=== PATIENT | male | born 1945 | race Caucasian/White ===

== ENCOUNTER 2019-04-10 04:55 | Inpatient (IN) ==
--- NOTE | 2019-03-20 16:03 | PAT Medication Instructions ---
Medication Instructions Date of Service March 20, 2019 Home Medications cholecalciferol (vitamin D3) [Vitamin D3] 1,000 unit PO QAM coQ10 (ubiquinol) 200 mg PO 2XWK multivitamin 1 tab PO QAM olmesartan 40 mg PO QPM omega-3 fatty acids-fish oil [Fish Oil Extra Strength] 1,200 cap PO BID simvastatin 10 mg PO PM STOP taking 2 weeks before surgery coQ10 (ubiquinol) 200 mg PO 2XWK omega-3 fatty acids-fish oil [Fish Oil Extra Strength] 1,200 cap PO BID DO NOT take the morning of surgery cholecalciferol (vitamin D3) [Vitamin D3] 1,000 unit PO QAM multivitamin 1 tab PO QAM Take evening before surgery olmesartan 40 mg PO QPM simvastatin 10 mg PO PM Other Notes If you have any questions please call us at [phone] or [phone] or [phone] or [phone]
--- NOTE | 2019-03-21 11:34 | Anesthesiology Consultation ---
Date of Service March 21, 2019 Assessment & Plan (1) Encounter for pre-operative examination: *PATIENT IS HARD OF HEARING* Chart Review Chart Review: Acceptable Risk for Surgery and Patient seen in Pre Admission Testing Teaching & Discussion Instructed NPO after midnight before surgery, except medications with 15 cc of water. Medication instructions provided according to the PAT guidelines. History Surgery Operation Date: 04/10/19 07:00 Proposed Procedures p Right Total Hip Replacement - Horace Castañeda MD Height/Weight Height: 5 ft 10 in Weight: 90.4 kg Allergies Allergy/AdvReac Type Severity Reaction Status Date / Time amoxicillin Allergy Rash Verified 03/19/19 15:10 Penicillins Allergy RSAH Verified 03/19/19 15:10 Medications Home Medications Medication Instructions Recorded Confirmed Last Taken cholecalciferol (vitamin D3) 1,000 unit PO QAM 03/19/19 03/19/19 Unknown [Vitamin D3] coQ10 (ubiquinol) 200 mg PO 2XWK 03/19/19 03/19/19 Unknown multivitamin 1 tab PO QAM 03/19/19 03/19/19 Unknown olmesartan 40 mg PO QPM 03/19/19 03/19/19 Unknown omega-3 fatty acids-fish oil [Fish 1,200 cap PO BID 03/19/19 03/19/19 Unknown Oil Extra Strength] simvastatin 10 mg PO PM 03/19/19 03/19/19 Unknown Past Medical History Medical History History of shingles On scalp. Valtrex started 02/25/2019 FOR 7 DAYS. Minimal symptoms at time of PAT. Hyperlipidemia Hypertension Osteoarthritis Exercise / Class Metabolic Activity II 4-5 Yardwork/Stairs/Walk up hill (Denies CP or SOB with 1 FOS.) Past Family History Family History Grandmother (Maternal) Family history of diabetes mellitus Grandmother (Paternal) Family history of diabetes mellitus Past Surgical History Surgical History H/O colonoscopy Hx of cataract extraction BOTH EYES Past Anesthesia History No Hx of Anesthesia Complications and No Family Hx of Anesthesia Complications GA naive. History of PONV No Hx of PONV and No Hx of Motion Sickness Social History Smoking Status: Former smoker Do You Dip or Chew Tobacco: No (quit 15-20yrs ago) Smoking End Date: 45 YR AGO Hx Alcohol Use: Yes alcohol intake frequency: a few times a week Hx Substance Use: No Review of Systems Pt denies any recent chest pain, shortness of breath, palpitations, cough, fever or URI. Physical Exam Vital Signs BP: 137/86 P: 56bpm SPO2: 95% RA T: 98.7 F R: 16 ENMT Mouth: no dental restorations, no chipped teeth and no loose teeth Thyromental Distance: < 3.5 Finger Breadths (3) Mallampati Class: I Neck normal visual inspection and + facial hair (mustache); neck extension not limited Respiratory normal respiratory effort Auscultation: lungs clear to auscultation bilaterally Cardiovascular Rate/Rhythm: regular rate and regular rhythm Heart Sounds: no murmur Vessels: no carotid bruit Testing Laboratory Results 03/21/19 11:43 03/21/19 11:43 PT 10.1 Seconds (9.0-12.0) 03/21/19 11:43 INR 1.0 (0.9-1.1) 03/21/19 11:43 APTT 24.5 Seconds (21.0-31.0) 03/21/19 11:43 Blood Type O Positive 03/21/19 11:43 Antibody Screen NEGATIVE 03/21/19 11:43 Electrocardiogram Date: 03/21/19 Findings: + SB @ (55) LAFB. Chest X-Ray Date: 03/21/19 Findings: + NAD
--- NOTE | 2019-03-21 12:05 | XRay Report ---
TWO VIEW CHEST CLINICAL HISTORY: Preoperative examination. FINDINGS: PA and lateral chest radiographs are obtained. No prior studies are available for compariso n at the time of dictation. The heart is top normal for projection. The pulmonary vasculature is no ncongested. The lungs and pleural spaces are clear. There is no pneumothorax. The skeletal structure s are osteopenic. Degenerative change is seen throughout the thoracic spine. The bony thorax appears intact. IMPRESSION: No active disease in the chest. Electronically signed by: Lincoln Montague M.D. 03/21/2019 12:04 PM
[2019-03-21 12:49] LABS: Basophils # (auto) 0.03 K/uL (0-0.2); Basophils % (auto) 0.4 %; Eosinophils # (auto) 0.12 K/uL (0-0.5); Eosinophils % (auto) 1.7 %; Immature Granulocytes # (auto) 0.01 K/uL (0.00-0.02); Immature Granulocytes % (auto) 0.1 %; Lymphocytes # (auto) 1.92 K/uL (1.2-3.4); Mean Corpuscular Hgb Conc 34.4 g/dL (32-36); Mean Corpuscular Volume 92.2 fL (80-100); Monocytes # (auto) 0.67 K/uL (0.11-0.59); Monocytes % (auto) 9.4 %; Neutrophils # (auto) 4.36 K/uL (1.4-6.5); Neutrophils % (auto) 61.4 %; Platelet Count 268 K/uL (130-400); RDW Coefficient of Variation 14.6 % (11.5-14.5); RDW Standard Deviation 49.1 fL (36.4-46.3); White Blood Count 7.11 K/uL (4.8-10.8)
[2019-03-21 12:58] LABS: Partial Thromboplastin Ratio 0.9; Partial Thromboplastin Time 24.5 Seconds (21.0-31.0); Prothrombin Time 10.1 Seconds (9.0-12.0)
[2019-03-21 13:02] LABS: BUN Creatinine Ratio 18.2 (10-20); Calcium 8.2 mg/dl (8.5-10.1); Potassium 4.1 mmol/L (3.5-5.1)
--- NOTE | 2019-04-06 18:15 | History and Physical Report ---
DATE OF ADMISSION: 04/10/2019 CHIEF COMPLAINT: Right hip pain. HISTORY OF PRESENT ILLNESS: The patient is a 74-year-old gentleman from [place] who presents for treatment of his right hip. He has a 4-year history of gradually increasing right hip pain and discomfort that has gotten significantly worse over the past year. He is a very active gentleman who has become less active due to his hip pain. He used to walk quite a bit, but can only walk about quarter of a mile. He limps the more he walks. He describes groin and thigh pain. He has got some nighttime discomfort. He takes Aleve, which takes the edge off of it at best. It is really affecting his lifestyle and he would like to have his hip fixed. PAST MEDICAL HISTORY: 1. Hypertension. 2. Elevated cholesterol. 3. Osteoarthritis. PAST SURGICAL HISTORY: None. ALLERGIES: AMOXICILLIN, WHICH CAUSES A RASH. CURRENT MEDICINES: Include: 1. Olmesartan. 2. Simvastatin. SOCIAL HISTORY: A 74-year-old male. He is from [place]. He is very active. He is retired. , with 4 children. Rare alcohol intake. Does not smoke. FAMILY HISTORY: Significant for colon cancer and heart disease. REVIEW OF HISTORY: Negative for diabetes, neurologic problems, vascular problems, bleeding disorders. No chest pain or shortness of breath. No history of DVT or PE. No known bleeding problems. PHYSICAL EXAMINATION: GENERAL: Reveals a pleasant, healthy-appearing middle-aged male. Looks a little younger than his stated age. HEENT: Benign. NECK: Supple. No lymphadenopathy. LUNGS: Clear to auscultation. HEART: Has a regular rate and rhythm. ABDOMEN: Soft, nontender, nondistended. EXTREMITIES: Grossly neurovascularly intact except as follows: Examination of the right hip reveals patient walks with a slightly antalgic gait. He is about 0.5 cm short on the right side compared to the left. He does have pain with any type of hip motion. He has got limited internal rotation to about neutral. He can externally rotate to 25 degrees. Negative straight leg raise. He is neurologically intact. No knee effusion. X-RAYS: X-rays of the right hip were reviewed. It shows advanced right hip DJD. He has got complete loss of his superior joint space. He has some subchondral sclerosis and some cystic changes and osteophyte formation. This has progressed over the past year. ASSESSMENT: A 74-year-old male with advanced right hip degenerative joint disease that has gotten significantly worse over the past year. He has failed conservative treatment and would like to have his right hip replaced. PLAN: We are going to take him to the operating room and do right total hip replacement. The risks and benefits of this procedure were explained to the patient including but not limited to DVT, PE, , infection, neurological injury, vascular injury, bleeding problem, pain, limited range of motion, stiffness, failure to relieve symptoms, incomplete relief of symptoms, need for further surgery in future, fracture, leg length inequality, nerve palsy, persistent pain, instability, need for blood transfusion, etc. The patient understands and desires to proceed. Informed consent was obtained. He is planning to be discharged to home using some home health for the first 2 weeks. SEBASTIEN
[2019-04-10] MEDS ORDERED: FAMOTIDINE 20 MG TAB PO SCH (06:00)
[2019-04-10] MEDS ORDERED: METOCLOPRAMIDE HCL 10 MG TABLET PO SCH (06:00)
[2019-04-10] MEDS ORDERED: ACETAMINOPHEN 500 MG TAB PO SCH (06:00)
[2019-04-10] MEDS ORDERED: GABAPENTIN 300 MG CAP PO SCH (06:00)
[2019-04-10] MEDS ORDERED: CEFAZOLIN 2000MG 2,000 MG/15 ML SYR IV SCH (06:00)
[2019-04-10] MEDS ORDERED: LR 500ML BOLUS, THEN 15ML/HR IV SCH (06:00)
[2019-04-10] MEDS ORDERED: TRANEXAMIC ACID 1,000 MG **IV Pre-op IV SCH (06:00)
[2019-04-10] MEDS ORDERED: LACTATED RINGER'S 1,000 ML IV SCH (06:00)
[2019-04-10] MEDS ORDERED: BUPIVACAINE/EPINEPHRINE 0.5% MPF 1:200,000 30 ML VIAL ONE (06:26)
[2019-04-10] MEDS ORDERED: BACITRACIN INJ 50,000 UNIT VIAL ONE (06:26)
[2019-04-10] MEDS ORDERED: BUPIVACAINE 0.5 % 5 MG/1 ML PF 10ML VIAL ONE (06:31)
[2019-04-10] MEDS ORDERED: MIDAZOLAM HCL 1 MG/ML 2ML VIAL ONE ×2 (06:35→06:36)
[2019-04-10] MEDS ORDERED: MoRPHine SULFATE PF 1 MG/ML 10 ML AMP/VIAL ONE (06:36)
--- NOTE | 2019-04-10 06:44 | History & Physical Bridge Note ---
Date of Service April 10, 2019 History & Physical Bridge Note I have examined the patient, reviewed the History & Physical and in the interval since the performance of the History & Physical I have noted the following changes of clinical significance: no changes noted
[2019-04-10] MEDS ORDERED: DiphenhydrAMINE HCL 50 MG/ML VIAL IV PRN (06:51)
[2019-04-10] MEDS ORDERED: ePHEDrine sulfate 50 MG/ML AMP IV PRN (06:51)
[2019-04-10] MEDS ORDERED: ONDANSETRON INJ 2 MG/ML 2 ML VIAL IV PRN (06:51)
[2019-04-10] MEDS ORDERED: NALOXONE HCL 0.4 MG/1 ML VIAL/CARP IV PRN ×2 (06:51→11:08)
[2019-04-10] MEDS ORDERED: NALOXONE HCL 0.08 MG in SYRINGE 1.8 ML IV PRN (06:51)
[2019-04-10] MEDS ORDERED: MEPERIDINE HCL 25 MG/ML CARP IV PRN (06:51)
[2019-04-10] MEDS ORDERED: LACTATED RINGER'S 500 ML IV PRN (06:51)
[2019-04-10] MEDS ORDERED: MoRPHine SULFATE PF 1 MG/ML 10 ML AMP/VIAL INT SPINAL ONE (06:51)
[2019-04-10] MEDS ORDERED: NALOXONE HCL 1 MG in SODIUM CHLORIDE 0.9% 1000ML 1,000 ML IV PRN (06:51)
[2019-04-10] MEDS ORDERED: NALBUPHINE HCL INJ 10 MG/ML AMP IV PRN (06:51)
[2019-04-10] MEDS ORDERED: NO NARCOTICS OR SEDATIVES SCH (07:00)
[2019-04-10] MEDS ORDERED: SODIUM CHLORIDE 0.9% 1000ML 1,000 ML IV SCH (07:00)
[2019-04-10] MEDS ORDERED: DC INTRASPINAL MORPHINE SCH (07:00)
[2019-04-10] MEDS ORDERED: PHENYLEPHRINE 100MCG/ML 5ML SYR ONE (07:05)
[2019-04-10] MEDS ORDERED: PROPOFOL IV EMULSION 10 MG/ML 20 ML VIAL IV ONE (07:05)
[2019-04-10] MEDS ORDERED: LIDOCAINE HCL 2% 2 ML VIAL/AMP(20MG/ML) INFIL ONE (07:05)
[2019-04-10] MEDS ORDERED: ePHEDrine sulfate 50 MG/ML SYR ONE (07:33)
[2019-04-10] MEDS ORDERED: VASOPRESSIN 20 UNIT/ML VIAL ONE (07:33)
[2019-04-10] MEDS ORDERED: PHENYLEPHRINE HCL 10 MG/ML VIAL ONE (07:33)
--- NOTE | 2019-04-10 08:23 | Post Operative Brief Note ---
Immediate Post Op Note v1 Date of Surgery April 10, 2019 Pre & Post Diagnosis Operation Date: 04/10/19 07:00 Pre-Op Diagnosis: Right Hip Degenerative Joint Disease Post-Op Diagnosis: Right Hip Degenerative Joint Disease Procedure Operation Date: 04/10/19 07:00 Actual Procedures p Right Total Hip Replacement(Right) - Horace Castañeda MD Surgeon Horace Castañeda MD Plastic Bubble Packer Darek, PAC Estimated Blood Loss 400 Findings Consistent with Post-Op Diagnosis Fluids 1700 cc Specimens Right Femoral Head Drains Foster Catheter Anesthesia Type Spinal MAC Complications none Disposition Accompanied Patient To Recovery: Yes Disposition: Recovery Room
--- NOTE | 2019-04-10 09:06 | XRay Report ---
SINGLE VIEW PELVIS; SINGLE VIEW RIGHT HIP CLINICAL HISTORY: Postoperative examination. FINDINGS: An AP portable view of the hips and pelvis with a crosstable lateral portable view of the r ight hip are obtained. A bipolar right hip arthroplasty has been placed. The femoral component of th e arthroplasty not well seated within the acetabular cup. At least 2 cortical lag screws transfix the acetabular cup. No acute fracture is identified. There are expected postoperative changes overlying the right hip including skin clips, subcutaneous gas, and soft tissue swelling. IMPRESSION: 1. There are expected postoperative findings status post right hip arthroplasty. No acute fracture is seen. 2. The femoral component of the arthroplasty is not well seated within the acetabular cup. Electronically signed by: Lincoln Montague M.D. 04/10/2019 9:05 AM
--- NOTE | 2019-04-10 09:40 | XRay Report ---
XR hip 1V RT w pelvis CLINICAL HISTORY: post op follow up subluxation COMPARISON: 8:40 AM same date DISCUSSION: Anatomic alignment posttotal right hip arthroplasty. No evidence for acetabular protrusio n. Soft tissue postoperative changes considered unremarkable. Expected soft tissue postoperative lopez ge the frog-leg projection suggests anterior subluxation of the femoral prosthetic in relation to the acetabular prosthetic. IMPRESSION: Partial intermittent and/or positional subluxation of the patient's total right hip arthr oplasty. The above report was generated using voice recognition software. It may contain grammatical, syntax or spelling errors. Electronically signed by: David Alford M.D. 04/10/2019 9:39 AM
--- NOTE | 2019-04-10 09:42 | XRay Report ---
XR hip 1V RT w pelvis CLINICAL HISTORY: RIGHT subluxation COMPARISON: 9:04 AM DISCUSSION: Anatomic alignment posttotal right hip arthroplasty. No evidence for positional subluxati on. Acetabular cup is stable in appearance. Expected postoperative soft tissue change. IMPRESSION: Anatomic alignment posttotal right hip arthroplasty. No evidence for subluxation on a pos itional basis. The above report was generated using voice recognition software. It may contain grammatical, syntax or spelling errors. Electronically signed by: David Alford M.D. 04/10/2019 9:41 AM
--- NOTE | 2019-04-10 10:31 | Anesthesiology Progress Note ---
Date of Service April 10, 2019 Anesthesia Post Procedure Vital Signs Vital Signs: Temp Pulse Pulse Resp BP Pulse Ox 04/10/19 10:25 97.2 F L 58 L 14 118/75 98 04/10/19 10:10 58 L 15 118/75 97 04/10/19 09:55 55 L 15 118/71 97 04/10/19 09:40 97.0 F L 55 L 19 104/65 99 04/10/19 09:30 55 L 17 109/65 96 04/10/19 09:20 54 L 17 110/64 100 04/10/19 09:10 61 18 114/85 92 04/10/19 09:00 56 L 13 95/63 L 93 04/10/19 08:50 56 L 16 106/69 98 04/10/19 08:40 58 L 18 106/62 99 04/10/19 08:30 63 12 109/62 99 04/10/19 08:24 97.9 F 72 12 117/71 99 04/10/19 05:49 98.6 F 61 20 146/91 H 96 Transfer of Care Handoff Completed per policy Notes Mental Status: alert / awake / arousable and participated in evaluation Patient Amnestic to Procedure: Yes Nausea / Vomiting: adequately controlled Pain: adequately controlled Airway Patency, RR, SpO2: stable & adequate BP & HR: stable & adequate Hydration State: stable & adequate Neuraxial Anesthesia: was administered and sensory block is resolving Anesthetic Complications: no major complications apparent and Pt Satisfied with anesthetic care
--- NOTE | 2019-04-10 11:01 | Operative Report ---
DATE OF OPERATION: 04/10/2019 SURGEON: Horace Castañeda MD SHANK RANDER: HORACIO Villarreal PREOPERATIVE DIAGNOSIS: Right hip degenerative joint disease. POSTOPERATIVE DIAGNOSIS: Right hip degenerative joint disease. PROCEDURE PERFORMED: Right uncemented ceramic on highly cross-linked polyethylene total hip arthroplasty. COMPLICATIONS: None. ESTIMATED BLOOD LOSS: 400 mL. FLUID REPLACEMENT: 1700 mL crystalloid fluid replacement. ANESTHESIA: Spinal. DRAINS: None. SPECIMENS: Right femoral head sent for pathology. OPERATIVE INDICATIONS: The patient is a 74-year-old gentleman who has had a several-year history of increasing right hip pain and discomfort that has gotten significantly worse over the past year. X-rays show progressive hip arthritis. He failed conservative treatment and elected to proceed with surgical treatment. OPERATIVE FINDINGS: Operative findings revealed advanced right hip DJD. He had extensive grade 4 changes of the femoral head and acetabulum. He had a large medial osteophyte. He had a large hip joint effusion. OPERATIVE IMPLANTS: 1. Operative implants consisted of Biomet G7 size 56 mm acetabular shell. 2. A 6.5 cancellous acetabular screws, one at 35 mm in length and 1 at 20 mm in length. 3. An apex hole eliminator. 4. A highly cross-linked polyethylene liner with a 56 mm outer diameter, 36 mm inner diameter with a gonsales placed inferior and posterior. 5. DePuy Corail size 13 KLA femoral stem. 6. +12/36 mm ceramic articular ball. OPERATIVE PROCEDURE: The patient was taken to the operating room, identified and placed on the operating table in supine position. All contact areas were appropriately padded. IV antibiotics were provided by anesthesia team. A spinal anesthetic had been implemented in the holding area. Foster catheter was placed in sterile fashion. The patient was then placed in the left lateral decubitus position. An axillary roll was placed. Stlberg hip positioner was used for positioning. The right hip and leg were then prepped and draped in usual sterile fashion. A posterolateral approach of the right hip was then performed through a curvilinear incision centered over the greater trochanter. Sharp dissection was carried through subcutaneous tissue down to the level of the IT band and gluteal fascia. The IT band and gluteal fascia were then incised longitudinally in line with skin incision. He had quite a bit of bursitis. The bursa was excised. The piriformis and external rotators were tagged and taken off the posterior aspect of the hip joint capsule very carefully. Great care was taken throughout the procedure to protect the sciatic nerve at all times. A posterior capsulotomy was then performed. He had a fairly large posterior capsule. This was kept for later repair. Hip was internally rotated and dislocated. Femoral neck osteotomy cut was made with the final cut about a cm above the lesser trochanter. Femoral head was removed and sent for pathology. The femur was retracted anteriorly. Attention was then drawn to the acetabulum. The acetabulum labrum was excised. He did have a fairly thickened hypertrophic labrum. The pulvinar fat was excised. The large medial osteophyte was removed. Sequential reaming of the acetabulum was then performed beginning with size 49 and progressing up to 55. A 56 mm Biomet G7 acetabular shell was then placed in about 40 degrees of lateral opening and 20 degrees of anteversion. It was fixed with two 6.5 cancellous acetabular screws. A trial liner was placed. I did remove an anterior acetabular osteophyte. Attention was then drawn to the femur. The proximal femur was entered with a cookie cutter followed by canal finder. I then broached beginning with a size 8 and progressing up to 13. We got good fit at 13. I used a calcar reamer to smoothen off the calcar. I then trialed the hip. The soft tissue tension was pretty lax. Hip components looked to be good and the hip was pretty stable, but we elected to use a +12 neck in order to optimize the leg lengths and soft tissue tension and stability. I did eventually place a gonsales inferior and posterior to maximize his hip stability in 90 degrees of flexion, especially considering his soft tissue laxity.. We elected to place these implants. All trial implants were removed. An apex hole eliminator was placed. Highly cross-linked polyethylene liner with a gonsales placed inferior and posterior was placed. A DePuy Corail size 13 KLA femoral stem was impacted in position. A +12/36 mm ceramic articular ball was placed. Hip was located and once again found to be stable. Attention was then drawn toward closing. I did inject locally with 60 mL of 0.5% Marcaine with epinephrine. I irrigated the wound extensively. The posterior capsule and external rotators were then repaired through drill holes in the posterior trochanter with #2 Ti-Cron suture. The IT band and gluteal fascia were then closed with #1 PDS suture in running fashion. The subcutaneous tissue was then closed with 2 layers, the deep layer #1 Vicryl suture and the subcutaneous tissue with 2-0 Dexon suture in a buried interrupted fashion. The skin was closed with skin les. Leg was then cleaned and dried and a sterile dressing of Xeroform, 4 x 4's, sterile ABD pad and foam tape was applied. The patient was then transferred to the recovery room in stable condition. The patient tolerated the procedure well with no complication. All needle and sponge counts were correct at the end of the operation. I attest to the content of the Intraoperative Record and any orders documented therein. Any exceptions are noted below. DERRICKD
[2019-04-10] MEDS ORDERED: [UNRECOGNIZED DRUG - OTHER] PO SCH (11:08)
[2019-04-10] MEDS ORDERED: BISACODYL 10 MG SUPP PR PRN (11:08)
[2019-04-10] MEDS ORDERED: NON-FORMULARY MEDICATION (Coq10 (Ubiquinol) 200 MG) PO SCH (11:08)
[2019-04-10] MEDS ORDERED: MAGNESIUM HYDROXIDE SUSP 30 ML UDC PO PRN (11:08)
[2019-04-10] MEDS ORDERED: MULTIVITAMIN TAB PO SCH (11:08)
[2019-04-10] MEDS ORDERED: ALUMINUM/MAGNESIUM SUSP 30 ML UDC PO PRN (11:08)
[2019-04-10] MEDS ORDERED: TAMSULOSIN HCL 0.4 MG CAP PO PRN (11:08)
[2019-04-10] MEDS: KETOROLAC TROMETHAMINE 15 MG/ML VIAL IV SCH ×3 (12:47→23:52)
[2019-04-10] MEDS: CHOLECALCIFEROL 1,000 UNITS TAB PO SCH (12:47)
[2019-04-10] MEDS: MULTIVITAMIN TAB PO SCH (12:47)
[2019-04-10] MEDS: DOCUSATE SODIUM 100 MG CAP PO SCH ×2 (12:47→20:02)
[2019-04-10] MEDS: ASPIRIN 81 MG ECTAB PO SCH ×2 (12:47→20:02)
[2019-04-10] MEDS: SODIUM CHLORIDE 0.9% 1000ML 1,000 ML IV SCH ×2 (14:23→21:09)
[2019-04-10] MEDS: CEFAZOLIN 2000MG 2,000 MG/15 ML SYR IV SCH ×2 (14:24→21:24)
[2019-04-10] MEDS: ACETAMINOPHEN 500 MG TAB PO SCH ×2 (14:24→21:24)
[2019-04-10] MEDS ORDERED: TRANEXAMIC ACID 1,000 MG in 0.9 % SODIUM CHLORIDE 100 ML IV SCH (14:30)
--- NOTE | 2019-04-10 17:01 | Progress Note ---
DATE: 04/10/2019 SUBJECTIVE: A 74-year-old gentleman postop from a right total hip replacement. He is doing well. Not having any pain at all yet. No chest pain or shortness of breath. Not feeling dizzy or lightheaded. No hip pain. In the PACU, his hip was subluxated anteriorly on his postoperative films. We just flexed his hip and internally rotated his foot a little bit and it has relocated. OBJECTIVE: VITAL SIGNS: Temperature 36.7. Vital signs stable. PHYSICAL EXAMINATION: GENERAL: Reveals a pleasant, middle-aged male. He is sitting up in bed and looks comfortable. He is talking to his . LUNGS: Clear to auscultation. HEART: Regular rate and rhythm. ABDOMEN: Soft, nontender, nondistended. EXTREMITIES: Grossly neurovascularly intact except as follows: Examination of the right lower extremity reveals the leg lengths to be equal. His leg is well aligned. Kneecap is pointed to the ceiling. He can dorsiflex and plantarflex his foot appropriately. He has got no particular pain with hip motion. His hip is stable on exam and is located. X-RAYS: X-rays of the right hip from recovery room are reviewed. It shows right uncemented total hip replacement. The initial films of his hip to be anterior subluxated. We did get a film with his foot internally rotated and flexed some and his hip is relocated. There is quite a bit of anteversion in the cup a little bit more than what I anticipated. ASSESSMENT: A 74-year-old gentleman postoperative from right total hip replacement, doing well. His hip is located currently and he does not have any pain. 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 He did have a fairly loose soft tissue envelope as we medialized this cup significantly. I think as his muscles tightened up, this will not be an issue. For now, we are going to keep a pillow behind his knee and just keep his knee slightly flexed while in bed. Does not need to do that otherwise. I discussed this with the patient and his today extensively and everything looks good and we will continue routine postoperative care other than that described above where we will keep a pillow underneath his knee when he is lying in bed. PLAN: 1. DVT prophylaxis including thigh-high TEDs, SCDs, and aspirin twice a day. 2. PT/OT. He can weight bear as tolerated. Right total hip protocol. We are going to keep his knee and hip just slightly flexed while lying flat in bed for now. I think this subluxation issue will resolve once his muscles have tightened up and the spinal is worn off, which is the case currently. 3. IV antibiotics x24 hours. 4. Pain control, doing well with current pain regimen. Not having any current pain. 5. Disposition: He is planning to be discharged home with some home health once adequately recovered. SEBASTIEN
[2019-04-10] MEDS: FERROUS GLUCONATE 324 MG TAB PO SCH (17:57)
[2019-04-10] MEDS: ASCORBIC ACID 500 MG TAB PO SCH (17:57)
[2019-04-10] MEDS: SIMVASTATIN 10 MG TAB PO SCH (20:02)
[2019-04-10] MEDS: SENNA 8.6 MG TAB PO SCH (20:02)
[2019-04-10] MEDS: OLMESARTAN MEDOXOMIL 40 MG TAB PO SCH (20:02)
[2019-04-11] MEDS ORDERED: HYDROmorphone INJ 0.5 MG/0.5 ML SYR IV PRN ×2 (00:51→07:00)
[2019-04-11] MEDS ORDERED: ONDANSETRON INJ 2 MG/ML 2 ML VIAL IV PRN ×2 (00:51→07:00)
[2019-04-11] MEDS ORDERED: METOCLOPRAMIDE HCL INJ 5 MG/ML 2 ML VIAL IV PRN ×2 (00:51→07:00)
[2019-04-11] MEDS: SODIUM CHLORIDE 0.9% 1000ML 1,000 ML IV SCH (03:52)
[2019-04-11] MEDS: ACETAMINOPHEN 500 MG TAB PO SCH ×3 (06:20→22:07)
[2019-04-11] MEDS: KETOROLAC TROMETHAMINE 15 MG/ML VIAL IV SCH ×3 (06:20→18:02)
[2019-04-11 06:52] LABS: Basophils # (auto) 0.02 K/uL (0-0.2); Basophils % (auto) 0.2 %; Eosinophils # (auto) 0.07 K/uL (0-0.5); Eosinophils % (auto) 0.8 %; Hemoglobin 10.6 g/dL (14.0-18.0); Immature Granulocytes # (auto) 0.02 K/uL (0.00-0.02); Immature Granulocytes % (auto) 0.2 %; Lymphocytes # (auto) 1.17 K/uL (1.2-3.4); Lymphocytes % (auto) 12.7 %; Mean Corpuscular Hgb Conc 34.2 g/dL (32-36); Mean Corpuscular Volume 93.1 fL (80-100); Mean Platelet Volume 9.7 fL (7.4-10.4); Monocytes # (auto) 1.22 K/uL (0.11-0.59); Monocytes % (auto) 13.3 %; Neutrophils % (auto) 72.8 %; Platelet Count 194 K/uL (130-400); RDW Coefficient of Variation 14.2 % (11.5-14.5); RDW Standard Deviation 48.6 fL (36.4-46.3); Red Blood Count 3.33 M/uL (4.7-6.1)
[2019-04-11] MEDS ORDERED: TRAMADOL HCL 50 MG TABLET PO PRN (07:00)
[2019-04-11 07:18] LABS: BUN Creatinine Ratio 18.3 (10-20); Calcium 7.7 mg/dl (8.5-10.1); Creatinine Clr Calc Pharmacy 86.2 ml/min; Est GFR (African American) 99.9; Est GFR (Non-African American) 86.2; Potassium 4.4 mmol/L (3.5-5.1)
[2019-04-11] MEDS: FERROUS GLUCONATE 324 MG TAB PO SCH ×2 (09:21→18:02)
[2019-04-11] MEDS: MULTIVITAMIN TAB PO SCH (09:21)
[2019-04-11] MEDS: TRAMADOL HCL 50 MG TABLET PO PRN (09:22)
[2019-04-11] MEDS: ASCORBIC ACID 500 MG TAB PO SCH ×2 (09:22→18:02)
[2019-04-11] MEDS: DOCUSATE SODIUM 100 MG CAP PO SCH ×2 (09:22→19:56)
[2019-04-11] MEDS: CHOLECALCIFEROL 1,000 UNITS TAB PO SCH (09:23)
[2019-04-11] MEDS: ASPIRIN 81 MG ECTAB PO SCH ×2 (09:23→19:56)
--- NOTE | 2019-04-11 13:59 | Progress Note ---
DATE: 04/11/2019 SUBJECTIVE: A 74-year-old gentleman postop day 1 from right total hip replacement. He is doing well. Therapy has gone well. A little bit of buttock soreness in his hip. Pain is manageable. No chest pain or shortness of breath. Therapy went well today. OBJECTIVE: VITAL SIGNS: Temperature 37.0. Vital signs stable. GENERAL: Physical examination shows a pleasant, middle-aged male. He is sitting up in bed and looks quite comfortable. EXTREMITIES: Examination of the right hip and leg reveals the leg lengths to be equal. His hip appears located. He can dorsiflex and plantarflex his foot appropriately. Minimal pain with hip motion. He is neurologically intact. LABORATORY DATA: Hemoglobin 10.6. Hematocrit 31.0. Electrolytes are stable. ASSESSMENT: A 74-year-old gentleman postop day 1 from right hip replacement. He is doing well. Therapy went well. He did have a little anterior subluxation in the recovery room, but I think this has resolved since the spinal has worn off. His hip clinically appears located and therapy went well. PLAN: 1. DVT prophylaxis including thigh-high TEDs, SCDs, and aspirin twice a day. 2. PT/OT. Weight bear as tolerated. Right total hip protocol. 3. Pain control, doing well with current pain regimen. 4. Hip subluxation postoperatively. I think this will resolve since the spinal has worn off and his muscle tension is back to normal. We will keep his pillow underneath his knee just while he is lying flat in bed and that is the only restrictions. If he develops further issues, we will have to address that, but I think it is unlikely. I had a discussion with the patient and his regarding this today. We will just observe this over time. 5. Disposition: Plan to discharge to home with some home health once adequately recovered.
[2019-04-11] MEDS: SIMVASTATIN 10 MG TAB PO SCH (19:56)
[2019-04-11] MEDS: SENNA 8.6 MG TAB PO SCH (19:56)
[2019-04-11] MEDS: OLMESARTAN MEDOXOMIL 40 MG TAB PO SCH (19:56)
[2019-04-12] MEDS: KETOROLAC TROMETHAMINE 15 MG/ML VIAL IV SCH ×2 (00:56→06:32)
[2019-04-12] MEDS: ACETAMINOPHEN 500 MG TAB PO SCH (06:32)
--- NOTE | 2019-04-12 08:12 | Progress Note ---
DATE: 04/12/2019 SUBJECTIVE: A 74-year-old gentleman postop day 2 from right hip replacement. He is doing well. Pain is controlled. Therapy went well. No chest pain or shortness of breath. Not feeling dizzy or lightheaded. OBJECTIVE: VITAL SIGNS: Temperature 37.2. Vital signs stable. GENERAL: Physical examination shows a pleasant, middle-aged male. He is sitting in bed doing his leg exercises. He is doing heel slides without any difficulty. EXTREMITIES: His incision is clean, dry and intact. Thigh is soft and supple. No drainage from the incision site. Leg lengths are equal. He is neurologically intact. ASSESSMENT: A 74-year-old gentleman postop day 2 from right total hip replacement, doing well. Hip is located. His hip is functioning fine. His pain is controlled. He is neurologically intact. PLAN: 1. DVT prophylaxis including thigh-high TEDs, SCDs, and aspirin twice a day. 2. PT/OT. Weight bear as tolerated. Right total hip protocol. 3. Pain control, doing well with current pain regimen. 4. Disposition: Plan to discharge to home with some home health later today.
[2019-04-12] MEDS: DOCUSATE SODIUM 100 MG CAP PO SCH (08:22)
[2019-04-12] MEDS: CHOLECALCIFEROL 1,000 UNITS TAB PO SCH (08:22)
[2019-04-12] MEDS: ASCORBIC ACID 500 MG TAB PO SCH (08:22)
[2019-04-12] MEDS: ASPIRIN 81 MG ECTAB PO SCH (08:23)
[2019-04-12] MEDS: MULTIVITAMIN TAB PO SCH (08:23)
[2019-04-12] MEDS: FERROUS GLUCONATE 324 MG TAB PO SCH (08:23)
[2019-04-12] MEDS: TRAMADOL HCL 50 MG TABLET PO PRN (12:24)
--- NOTE | 2019-04-18 08:09 | Discharge Summary ---
ADMITTING PHYSICIAN AND SURGEON: Dr. Horace Castañeda. ADMITTING DIAGNOSIS: Right hip degenerative joint disease. SURGERY PERFORMED: Right total hip arthroplasty. SECONDARY DIAGNOSES: Hypertension, elevated cholesterol, osteoarthritis. CONSULTS: None obtained. HISTORY AND PHYSICAL EXAMINATION: Well documented in the patient's chart. HOSPITAL COURSE: The patient was admitted on 04/10/2019 underwent total hip arthroplasty, tolerated the procedure well. There were no complications. He was transferred to the PACU postoperatively. Postoperative films in the PACU showed an anterior subluxation of his hip. His hip and knee were slightly flexed and internally rotated and this was reduced. He was transferred later to the orthopedic floor for further care. He was given Ancef for antibiotic prophylaxis, THAIS stockings, SCDs and aspirin for DVT prophylaxis. Hemoglobin, hematocrit and vital signs were monitored during his hospital stay and remained stable, did not require any blood transfusions. There were no complications. On postoperative day 2, he was tolerating a regular diet, pain was controlled with oral pain medicine. He was participating in physical therapy. Postop day 2, he was discharged home, set up with home health services, given printed discharge instructions and specific instructions to continue total hip precautions and continue to keep a pillow behind his knee while he is in bed for 2 weeks postoperatively. He can weightbear as tolerated. He was given new prescriptions for extra strength Tylenol, aspirin, iron supplement and tramadol. Continue his home medicines. Continue physical therapy, weightbearing as tolerated, THAIS stockings, total hip precautions. Follow up approximately 2 weeks postop or sooner if there are any problems or concerns.
[2019-04-18 10:55] LABS: Est GFR (Non-African American) 82.8
[2019-04-18 10:56] LABS: Creatinine Clr Calc Pharmacy 81.6 ml/min
[2019-04-18 10:57] LABS: Hematocrit (blood only) 42.5 % (42-52); Hemoglobin 14.6 g/dL (14.0-18.0); Red Blood Count 4.61 M/uL (4.7-6.1)
== END 2019-04-12 12:32 | disposition home health service (06) | DRG 470 ==
LOC: EDSEX → ASU 04:55 → 3E 08:27

== ENCOUNTER 2024-04-27 06:15 | Observation (INO) ==
--- NOTE | 2024-03-14 12:49 | PAT Medication Instructions ---
Medication Instructions Date of Service March 14, 2024 Home Medications cholecalciferol (vitamin D3) 25 mcg (1,000 unit) tablet (Vitamin D3) 1,000 unit PO QAM coQ10 (ubiquinol) 200 mg capsule 200 mg PO 2XWK multivitamin 1 tab PO QAM olmesartan 40 mg tablet 40 mg PO QPM omega-3 fatty acids-fish oil 435 mg-880 mg capsule (Fish Oil Extra Strength) 1,200 cap PO BID simvastatin 10 mg tablet 20 mg PO PM STOP taking 2 weeks before surgery coQ10 (ubiquinol) 200 mg capsule 200 mg PO 2XWK omega-3 fatty acids-fish oil 435 mg-880 mg capsule (Fish Oil Extra Strength) 1,200 cap PO BID DO NOT take the morning of surgery cholecalciferol (vitamin D3) 25 mcg (1,000 unit) tablet (Vitamin D3) 1,000 unit PO QAM multivitamin 1 tab PO QAM Take evening before surgery olmesartan 40 mg tablet 40 mg PO QPM simvastatin 10 mg tablet 20 mg PO PM OTHERWISE NOTHING TO EAT OR DRINK AFTER MIDNIGHT Other Notes If you have any questions please call us at [phone] or [phone] or [phone] or [phone]
--- NOTE | 2024-03-23 11:10 | Anesthesiology Consultation ---
Date of Service March 23, 2024 Assessment & Plan (1) Encounter for pre-operative examination: - Infectious disease screening: Per assessment on 03/23/24: No known recent infectious disease contacts or current infectious disease symptoms. - Outpatient joint assessment: Pt currently scheduled for inpatient pathway. If surgeon requests review for outpatient joint pathway, patient is an acceptable candidate for outpatient joint program from anesthesia standpoint pending surgeon's office assessment that patient is motivated, has good support and completes [facility] preop requirements. - S/P Right LETTY (04/12/19): SAB at L3-4, 1 attempt at [facility] Chart Review Chart Review: Acceptable Risk for Surgery and Patient seen in Pre Admission Testing Teaching & Discussion Pre-Anesthesia Teaching/Discussion Notes: Instructed NPO after midnight before surgery,except medications with 15 cc of water. Medication instructions provided according to the PAT guidelines. History Surgery Operation Date: 04/27/24 08:50 Proposed Procedures p Left Total Hip Arthroplasty - Horace Castañeda MD Height/Weight Height: 5 ft 10 in Weight: 89.2 kg Allergies Allergy/AdvReac Type Severity Reaction Status Date / Time amoxicillin Allergy Mild Rash Verified 03/12/24 08:47 Penicillins Allergy Mild Rash Verified 03/22/24 09:21 Medications Home Medications Medication Instructions Recorded Confirmed Last Taken cholecalciferol (vitamin D3) 25 1,000 unit PO QAM 03/19/19 03/12/24 04/09/19 05:30 mcg (1,000 unit) tablet (Vitamin D3) coQ10 (ubiquinol) 200 mg capsule 200 mg PO 2XWK 03/19/19 03/12/24 03/26/19 multivitamin 1 tab PO QAM 03/19/19 03/12/24 04/09/19 05:30 olmesartan 40 mg tablet 40 mg PO QPM 03/19/19 03/12/24 04/09/19 17:30 omega-3 fatty acids-fish oil 435 1,200 cap PO BID 03/19/19 03/12/24 03/26/19 mg-880 mg capsule (Fish Oil Extra Strength) simvastatin 10 mg tablet 20 mg PO PM 03/19/19 03/12/24 04/09/19 17:30 Past Medical History Medical History Degenerative joint disease of left hip GERD (gastroesophageal reflux disease) diet controlled Hiatal hernia History of COVID-19 (2020) symptoms resolved Hyperlipidemia Hypertension Osteoarthritis Exercise / Class Metabolic Activity II 4-5 Yardwork/Stairs/Walk up hill Past Family History Family History Grandmother (Maternal) Family history of diabetes mellitus Grandmother (Paternal) Family history of diabetes mellitus Past Surgical History Surgical History H/O colonoscopy History of postoperative nausea and vomiting "mild" History of total right hip arthroplasty Right LETTY: SAB at L3-4, 1 attempt at [facility] (04/12/19) Hx of cataract extraction b/l Past Anesthesia History No Hx of Anesthesia Complications and No Family Hx of Anesthesia Complications History of PONV No Hx of Motion Sickness and History of PONV Social History Smoking Status: Former smoker Do You Dip or Chew Tobacco: No Smoking End Date: Quit 50 years ago Hx Alcohol Use: Yes alcohol intake frequency: a few times a week Hx Substance Use: No substance use type: does not use Review of Systems Patient denies chest pain, shortness of breath, dyspnea on exertion, fever, chills, cough, wheezing, palpitations. Physical Exam Vital Signs BP 143/78 P 61 TEMP 98.4 SP02 96%RA RESP 16 Physical Full cervical extension range of motion. Full TMJ range of motion. TMD 3 finger breaths Mallampati Score II Lungs: clear throughout to auscultation Cardiac: regular rate and rhythm, no murmurs noted Spine: normal Carotid arteries: negative bruit Extremities: no LE edema Lab Results Anesthesia Preop Results Results Anesthesia Widget: WBC 5.93 K/ul (4.8-10.8) 03/23/24 Hgb 14.5 g/dl (14.0-18.0) 03/23/24 Hct 41.9 % (42.0-52.0) L 03/23/24 Plt 263 K/uL (130-400) 03/23/24 Na 139 mmol/L (136-145) 03/23/24 K 4.5 mmol/L (3.5-5.1) 03/23/24 Cl 107 mmol/L (98-107) 03/23/24 CO2 28 mmol/L (21-32) 03/23/24 BUN 15 mg/dl (6-23) 03/23/24 Creat 0.86 mg/dl (0.6-1.4) 03/23/24 Glucose Level 100 mg/dl (70-99(Fasting)) H 03/23/24 PT 10.2 Seconds (9.0-12.0) 03/23/24 PTT 26 Seconds (21-31) 03/23/24 INR 0.9 (0.9-1.1) 03/23/24 Blood Type O Positive 03/23/24 Antibody Screen NEGATIVE 03/23/24 Testing Electrocardiogram Date: 03/23/24 NSR at 61bpm. LAFB. Voltage criteria for LVH. No significant change compared to 03/21/2019 per vp strategy comparison. Chest X-Ray Date: 03/23/24 FINDINGS: Lung volumes are normal. Lungs are clear. There is no pneumothorax or pleural effusion. Cardiac size is normal. Mediastinal contours are normal. There is no evidence for pulmonary edema. IMPRESSION: No acute cardiopulmonary findings.
--- NOTE | 2024-04-21 09:17 | History & Physical Report ---
Date of Service April 21, 2024 Assessment & Plan (1) Arthritis of left hip: 79-year-old gentleman 5 years out from a right hip replacement with advanced left hip arthritis. Is consequently worse over the past year previous failed conservative measures. He would like to proceed with left hip replacement. Plan: [place]asta taken to the operating room do a left total hip replacement. The risks Mente this procedure explained include but not limited to a DVT PE infection neurological injury vascular bleeding palm pain limb range of motion sepsis fairly her symptoms incomplete relief of symptoms dislocation fracture excetra. Patient understands and desires to proceed. Informed consent was obtained. He is planned to be discharged to home using [facility]. Will use aspirin for DVT prophylaxis. (2) Degenerative joint disease of left hip: (3) History of total right hip arthroplasty: History of Present Illness Chief Complaint: . Left hip pain and stiffness. Primary Care Provider: Joe Wray . The patient is 79-year-old gentleman who presents now for surgical treatment of his left hip. He is well-known to me from previous right hip replacement done about 5 years ago. Over the past several years he developed increased pain discomfort in his left hip its gotten significant worse over the past year. He takes Tylenol without much relief. It started to really limit his ability to ambulate any significant distance. He has difficulty putting his shoes and socks on. His right hip is doing well. He would like to have his left hip fixed. Allergies Allergy/AdvReac Type Severity Reaction Status Date / Time amoxicillin Allergy Mild Rash Verified 03/12/24 08:47 Penicillins Allergy Mild Rash Verified 03/22/24 09:21 Home Medications Medication Instructions Recorded Confirmed Type cholecalciferol (vitamin D3) 25 1,000 unit PO QAM 03/19/19 03/12/24 History mcg (1,000 unit) tablet (Vitamin D3) coQ10 (ubiquinol) 200 mg capsule 200 mg PO 2XWK 03/19/19 03/12/24 History multivitamin 1 tab PO QAM 03/19/19 03/12/24 History olmesartan 40 mg tablet 40 mg PO QPM 03/19/19 03/12/24 History omega-3 fatty acids-fish oil 435 1,200 cap PO BID 03/19/19 03/12/24 History mg-880 mg capsule (Fish Oil Extra Strength) simvastatin 10 mg tablet 20 mg PO PM 03/19/19 03/12/24 History Past Med/Surg History Problem List (Updated 04/21/24 @ 09:16 by Horace Castañeda MD) Arthritis of left hip Encounter for pre-operative examination Medical History Degenerative joint disease of left hip GERD (gastroesophageal reflux disease) diet controlled Hiatal hernia History of COVID-19 (2020) symptoms resolved Osteoarthritis Hypertension Hyperlipidemia Surgical History History of postoperative nausea and vomiting "mild" History of total right hip arthroplasty Right LETTY: SAB at L3-4, 1 attempt at [facility] (04/12/19) H/O colonoscopy Hx of cataract extraction b/l Family History Grandmother (Maternal) Family history of diabetes mellitus Grandmother (Paternal) Family history of diabetes mellitus Social History Smoking Status: Former smoker Smoking End Date: Quit 50 years ago; Second Hand Exposure: No; Do You Dip or Chew Tobacco: No; Tobacco Cessation Education Requested by Patient: No Hx Alcohol Use: Yes Hx Substance Use: No Preferred Language: Welsh Communication Ability: Effective 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 Physical Exam . Physical examination reveals a healthy pleasant middle-age male. Looks to be in pretty good health. Examination of the left hip reveal patient walks with a fairly normal gait. Just a slight bit of a limp. He is about a half a centimeter shortening on the left side compared to the right. Is got stiffness and pain with any type of hip motion. He can internally rotate to neutral at best. Negative straight leg raise. No knee effusion. He is neurologically intact. Examination the right hip reveals a well-healed incision. No pain with hip motion. Constitutional WD/WN, vitals as above Neck trachea midline, no thyromegaly Respiratory normal respiratory effort, lungs clear to auscultation Cardiovascular RRR, no murmur, no edema Gastrointestinal (Abdomen) normal bowel sounds, soft, nontender, no hepatosplenomegaly Results & Data Results & Data Laboratory Results . Diagnostic Findings . X-rays of the left hip were reviewed. Shows advanced hip arthritis. Is got complete loss of superior joint space. A little bit of subluxation of the femoral head out of the acetabulum. The right hip replacement looks me good position without signs of problems or wear. PG Care Time/CCT Total # of Minutes Spent Total Time Spent with Patient: Total time spent is greater than 50% in coordination of care (as documented) at patient's floor/unit and/or counseling patient: Coding Level of Care Code None Diagnoses Arthritis of left hip M16.12 Degenerative joint disease of left hip M16.12 History of total right hip arthroplasty Z96.641
[2024-04-27] MEDS ORDERED: ROPIVACAINE 0.5% 5 MG/ML 30 ML VIAL ONE (06:19)
--- NOTE | 2024-04-27 06:44 | History & Physical Bridge Note ---
Date of Service April 27, 2024 History & Physical Bridge Note I have examined the patient, reviewed the History & Physical and in the interval since the performance of the History & Physical I have noted the following changes of clinical significance: no changes noted
[2024-04-27] MEDS: ACETAMINOPHEN 500 MG TAB PO SCH ×2 (06:45→14:22)
[2024-04-27] MEDS: dexAMETHasone**PF** 10 MG/ML VIAL IV SCH (06:45)
[2024-04-27] MEDS: FAMOTIDINE 20 MG TAB PO SCH (06:45)
[2024-04-27] MEDS: METOCLOPRAMIDE HCL 10 MG TABLET PO SCH (06:46)
[2024-04-27] MEDS: CeleBREX 200 MG CAP PO SCH (06:46)
[2024-04-27] MEDS: LR 60ML/HR IV SCH (06:46)
[2024-04-27] MEDS: LR 500ML BOLUS, THEN 15ML/HR IV SCH (07:05)
[2024-04-27] MEDS ORDERED: MIDAZOLAM HCL 1 MG/ML 2ML VIAL ONE (07:35)
[2024-04-27] MEDS ORDERED: KETOROLAC 30 MG/ML VIAL IV PRN (08:13)
[2024-04-27] MEDS ORDERED: ONDANSETRON INJ 2 MG/ML 2 ML VIAL IV PRN (08:13)
[2024-04-27] MEDS ORDERED: ATROPINE SULFATE 0.1 MG/ML 10ML SYR IV PRN (08:13)
[2024-04-27] MEDS ORDERED: ePHEDrine sulfate 50 MG/ML AMP IV PRN (08:13)
[2024-04-27] MEDS ORDERED: HYDROmorphone INJ 1 MG/ML SYRINGE IV PRN (08:13)
[2024-04-27] MEDS: TRANEXAMIC ACID 1,000 MG **IV Pre-op IV SCH (08:15)
[2024-04-27] MEDS: ceFAZolin 2000MG 2,000 MG/15 ML SYR IV SCH (09:02)
[2024-04-27] MEDS ORDERED: ePHEDrine sulfate 50 MG/5 ML SYR ONE (09:12)
[2024-04-27] MEDS ORDERED: KETAMINE HCL 10MG/ML SYR ONE (09:12)
[2024-04-27] MEDS ORDERED: PROPOFOL IV EMULSION 10 MG/ML 20 ML VIAL IV ONE (09:13)
[2024-04-27] MEDS ORDERED: LIDOCAINE 2% 2 ML VIAL/AMP(20MG/ML) INFIL ONE (09:13)
[2024-04-27] MEDS ORDERED: PHENYLEPHRINE 100MCG/ML 10ML SYR IV ONE (09:27)
[2024-04-27] MEDS ORDERED: ONDANSETRON INJ 2 MG/ML 2 ML VIAL ONE (09:27)
[2024-04-27] MEDS: BUPIVACAINE/EPINEPHRINE 0.5% MPF 1:200,000 30 ML VIAL ONE (09:40)
[2024-04-27] MEDS ORDERED: VASOPRESSIN 20 UNIT/ML VIAL ONE (09:50)
--- NOTE | 2024-04-27 10:37 | Operative Report ---
PG Post Operative Report Pre & Post Diagnosis Operation Date: 04/27/24 08:50 Pre-Op Diagnosis: Left Hip Degenerative Joint Disease Post-Op Diagnosis: Left Hip Degenerative Joint Disease I identified the patient and participated in the time-out.: Yes Procedure Operation Date: 04/27/24 08:50 Actual Procedures p Left Total Hip Arthroplasty(Left) - Horace Castañeda MD Surgeon Horace Castañeda MD Forex Trader None Estimated Blood Loss 200 Findings Consistent with Post-Op Diagnosis Operative findings were advanced left hip DJD with extensive grade 4 changes. He had a large medial acetabular osteophyte as well as some anterior acetabular osteophytes. A lot of osteophytes around the femoral head neck as well. Moderate to large hip joint effusion. Specimens Left femoral head sent for pathology. Anesthesia Type Spinal MAC Complications none Disposition Accompanied Patient To Recovery: No Indications Patient is a 79-year-old gentleman now about 5 years out from right hip replacement. Over the past several years she developed increased pain discomfort in his left hip became more debilitating over time. X-rays show advanced hip arthritis which had progressed markedly over the past several years. He elected proceed with surgical treatment. Description of Procedure Operative implants consist of: 1 Biomet G7 size 56 mm acetabular shell. 2. 6.5 cancellous acetabular screws 1 of 35 mm length and 125 mm length. 3. [place] hole seamstress fitter. 4. 56 mm outer diameter and 40 mm inner diameter polyethylene liner highly cross-linked. 5. DePuy Karaya I size 13 KLA femoral stem. 6. +8.5/40 mm ceramic femoral head. The patient was taken the operating, identified, placed on the operating table in the supine position but all contractors were appropriately padded. IV antibiotics tried by anesthesia team. A spinal anesthetic had been implemented holding area. The patient was then placed in the right lateral decubitus position. Axillary roll was placed. A stool Birkett position was used for positioning. The left hip and leg were then prepped and draped in usual sterile fashion. A posterolateral approach to the left hip was then performed to a curvilinear incision centered over the greater trochanter. Sharp dissection was carried through subcutaneous tissue down the IT band gluteal fascia. The IT band gluteal fascia then incised longitudinally in line with skin incision. The underlying greater bursa was excised. The piriformis and external rotators along with the posterior hip joint capsule were then released from the posterior aspect the hip as a single layer. The hip was then internally rotated and dislocated. Femoral neck osteotomy cut was made with Final Cut about 10 mm above the lesser trochanter. Femoral head was removed and sent for pathology. The femur which was tracking anteriorly. Attention drawn the acetabulum. The acetabular labrum was excised. The pulmonary fat was excised. Sequential reaming the acetabular was then performed being with size 49 and progressing up to a 55. I did ream a little bit with a 56 reamer and then placed a 56 mm cup in about 40 degrees lateral opening and 20 degrees of anteversion. It was cyst fixed with two 6.5 cancellous acetabular screws. An anterior osteophyte was removed. A trial liner was then placed. Attention drawn the femur. The proximal femur was entered with a [facility] cutter followed by canal finder. I then broached beginning with size 8 and progressing up to 13. I did not think I could get a bigger approach down so we stopped there. We trialed the hip. With the +5 articular ball the soft tissue tension was just really loose. I elected using a +8.5. We elected to maximize his stability and use a 40 mm head. We elect to place these implants. Trial implants were removed. An apex hole seamstress fitter was placed. Highly cross- linked polyethylene liner was placed. A size 13 KLA femoral stem was impacted in position. A +8.5/40 mm ceramic articular ball was placed. Hip was located and once again found to be stable. Attention drawn toward closing. Wound was irrigated coconuts pulsatile lavage solution. I did inject locally with 60 cc of absent Marcaine with epinephrine. The posterior capsule and external rotators then repaired through drill holes in the posterior trochanter with #2 Tycron suture. The IT band gluteal fascia then closed in 1 PDS suture running fashion through subcutaneous tissue then closed with 2 layers of deep layer #1 Vicryl suture and subcutaneous tissues with 2-0 Dexon suture in a buried interrupted fashion the skin was closed skin les. Leg was then cleaned and dried and a sterile dressing with Xeroform, 4 fours, sterile ABD pad and foam tape was applied. The patient then transferred to the recovery room in stable condition. Patient tolerated the procedure well and there were no complications. I attest to the content of the Intraoperative Record and any orders documented therein. Any exceptions are noted below.
[2024-04-27] MEDS ORDERED: NON-FORMULARY MEDICATION (Coq10 (Ubiquinol) 200 mg Capsule) PO SCH (11:49)
--- NOTE | 2024-04-27 11:49 | XRay Report ---
XR hip 1V LT w pelvis CLINICAL HISTORY: IN PACU - Post Surgical TECHNIQUE: 1 view of the left hip and single frontal view of the pelvis were obtained. Comparison: Comparison is made to pelvis radiograph 05/25/2019 FINDINGS: Patient is status post left total hip arthroplasty with expected postsurgical changes including soft tissue swelling and subcutaneous emphysema. Stable right total hip arthroplasty. IMPRESSION: Expected postoperative appearance status post placement of total hip arthroplasty. ACT 112: Negative or not required by law. Electronically signed by: Yehuda Arriaza M.D. 04/27/2024 11:48 AM
--- NOTE | 2024-04-27 12:45 | Anesthesiology Progress Note ---
Date of Service April 27, 2024 Anesthesia Post Procedure Vital Signs Vital Signs: Temp Pulse Pulse Resp BP BP Pulse Ox 04/27/24 12:00 66 18 108/42 L 94 04/27/24 11:52 04/27/24 11:45 36.3 C L 66 20 93/58 L 92 04/27/24 11:20 60 20 107/61 96 04/27/24 11:10 36.4 C L 68 21 102/56 L 96 04/27/24 11:00 70 22 104/57 L 92 04/27/24 10:50 79 22 104/70 95 04/27/24 10:40 68 17 113/59 L 95 04/27/24 10:30 36.6 C 74 16 103/55 L 95 04/27/24 06:43 36.8 C 68 20 119/79 95 O2 Del Method O2 Flow Rate 04/27/24 12:00 Nasal Cannula 2.0 04/27/24 11:52 Nasal Cannula 2 04/27/24 11:45 Nasal Cannula 2.0 04/27/24 11:20 Nasal Cannula 2 04/27/24 11:10 Nasal Cannula 2 04/27/24 11:00 Nasal Cannula 2 04/27/24 10:50 Oxymask 6 04/27/24 10:40 Oxymask 6 04/27/24 10:30 Oxymask 6 04/27/24 06:43 Room Air Pain Intensity Left Hip: Pain Intensity: 3 Transfer of Care Handoff Completed per policy Notes Mental Status: alert / awake / arousable Patient Amnestic to Procedure: Yes Nausea / Vomiting: adequately controlled Pain: adequately controlled Airway Patency, RR, SpO2: stable & adequate BP & HR: stable & adequate Hydration State: stable & adequate Neuraxial Anesthesia: was administered and sensory block is resolving Anesthetic Complications: no major complications apparent
[2024-04-27] MEDS: SODIUM CHLORIDE 0.9% 1,000 ML IV SCH (12:55)
[2024-04-27] MEDS: KETOROLAC TROMETHAMINE 15 MG/ML VIAL IV SCH (12:56)
[2024-04-27] MEDS: ASCORBIC ACID 500 MG TAB PO SCH (16:14)
[2024-04-27] MEDS: TRANEXAMIC ACID / 0.7% NACL 1,000 MG/100 ML BAG IV SCH (16:18)
[2024-04-27] MEDS: SENNA 8.6 MG TAB PO SCH (20:37)
[2024-04-27] MEDS: ASPIRIN 81 MG ECTAB PO SCH (20:38)
[2024-04-27] MEDS: OMEGA-3 (PURIFIED FISH OIL) 1 GM CAP PO SCH (20:41)
[2024-04-27] MEDS: SIMVASTATIN 20 MG TAB PO SCH (20:42)
[2024-04-27] MEDS: OLMESARTAN MEDOXOMIL 40 MG TAB PO SCH (20:43)
[2024-04-28 06:25] LABS: Basophils # (auto) 0.02 K/uL (0.00-0.20); Basophils % (auto) 0.1 %; Hematocrit (blood only) 34.2 % (42.0-52.0); Hemoglobin 11.7 g/dl (14.0-18.0); Immature Granulocytes # (auto) 0.09 K/uL (0.01-0.20); Immature Granulocytes % (auto) 0.5 %; Lymphocytes # (auto) 1.44 K/uL (1.20-3.40); Lymphocytes % (auto) 7.9 %; Mean Corpuscular Hemoglobin 30.3 pg (25.0-34.0); Mean Corpuscular Hgb Conc 34.2 g/dL (32.0-36.0); Mean Corpuscular Volume 88.6 fL (80.0-100.0); Mean Platelet Volume 10.1 fL (9.4-12.4); Monocytes # (auto) 1.75 K/uL (0.11-0.59); Monocytes % (auto) 9.6 %; Neutrophils % (auto) 81.9 %; Platelet Count 233 K/uL (130-400); RDW Coefficient of Variation 13.7 % (11.5-14.5); RDW Standard Deviation 44.3 fL (36.4-46.3); Red Blood Count 3.86 M/uL (4.70-6.10)
[2024-04-28 06:46] LABS: Calcium 8.2 mg/dl (8.6-10.3); Creatinine Clr Calc Pharmacy 63.9 ml/min; Est GFR (African American) 83.8 ml/min; Est GFR (Non-African American) 72.3 ml/min; Potassium 4.3 mmol/L (3.5-5.1)
--- NOTE | 2024-04-28 08:12 | Orthopedic Progress Note ---
Date of Service April 28, 2024 Assessment & Plan (1) Status post total hip replacement, left: Plan: 79-year-old gentleman postop day 1 from left hip replacement doing well. Pains controlled. Hip is located. He is neurologically intact. He is hoping to go home today. Plan: 1. DVT prophylaxis including thigh-high teds, SCDs, aspirin twice a day. 2. PT/OT. He can fully weight-bear as tolerated. Needs to obey hip precautions. 3. Pain control doing okay with current pain regimen. 4. Disposition plan to discharge home with some home health if he does okay in therapy today. Admission and Anticipated Discharge Date Admission Date: April 27, 2024 Subjective 79-year-old gentleman postop day 1 from a left hip replacement. He is doing well. Pain is controlled. He has been up and walk some with a walker and done pretty well with that. No no nausea. No chest pain or shortness of breath. Not feeling dizzy or lightheaded. Physical Exam Physical Exam: Physical examination was a pleasant middle-age male. Sitting up in his bed and talking to his and eat breakfast. Examination of the left hip reveals the dressing be clean dry and intact. Leg lengths are equal. Can dorsiflex and plantarflex his foot appropriately. He is neurologically intact. Respiratory: normal respiratory effort, lungs clear to auscultation Cardiovascular: RRR, no murmur, no edema Gastrointestinal (Abdomen): normal bowel sounds, soft, nontender, no hepatosplenomegaly Results & Data Vital Signs (Past 12 Hours) Vital Signs Temp Pulse Pulse Resp BP BP Pulse Ox 04/28/24 07:02 36.7 C 60 17 137/78 96 04/28/24 04:14 36.6 C 63 16 142/85 H 95 04/27/24 23:23 36.5 C 67 16 126/72 95 O2 Del Method 04/28/24 07:02 Room Air 04/28/24 04:14 Room Air 04/27/24 23:23 Room Air Laboratory Results Hemoglobin is 11.7. Hematocrit is 34.2. Electrolytes are stable.
[2024-04-28] MEDS: TAMSULOSIN HCL 0.4 MG CAP PO SCH (08:28)
[2024-04-28] MEDS: CHOLECALCIFEROL 25 MCG (1000 UNITS) TAB PO SCH (08:31)
[2024-04-28] MEDS: MULTIVITAMIN TAB PO SCH (08:31)
[2024-04-28] MEDS: dexAMETHasone 10 MG in SYRINGE 0 ML IV SCH (08:31)
[2024-04-28] MEDS ORDERED: NON-FORMULARY MEDICATION (Multivitamin Tablet) PO SCH (09:00)
[2024-04-28] MEDS: traMADol HCL 50 MG TABLET PO PRN (10:01)
--- NOTE | 2024-05-01 12:47 | Discharge Summary ---
Date of Service May 01, 2024 Discharge Data Procedures Performed Operation Date: 04/27/24 08:50 Actual Procedures p Left Total Hip Arthroplasty(Left) - Horace Castañeda MD Hospital Course (1) Status post total hip replacement, left: This is a 79 year old patient admitted on 04/27/24 and underwent total hip arthroplasty. He tolerated the procedure well and there were no complications. Transferred to the PACU post op and later to the orthopedic floor for further care. He was given ancef for antibiotic prophylaxis. He was also given THAIS stockings, SCDs, and aspirin for DVT prophylaxis. Hemoglobin, hematocrit, and vital signs were monitored during his hospital stay and remained stable. Did not require any blood transfusions. There were no complications during his hospital stay. By post op day #1 the patient was tolerating a regular diet, pain was reasonably controlled with oral pain medicine, and she was participating in physical therapy. On post op day #1 the patient was discharged home and set up with home health care. __ was given printed discharge instructions including prescriptions for extra strength tylenol, aspirin, ketorolac, zofran, senokot, flomax, and tramadol. Continue hip precautions. Continue physical therapy, weight bearing as tolerated. Continue THAIS stockings. Follow up approximately 2 weeks post op or sooner if there are problems or concerns. Coding Level of Care Code None Diagnoses Status post total hip replacement, left Z96.642
== END 2024-04-28 10:19 | disposition home health service (06) ==
LOC: 3N 06:15 → ASU 06:15
DX: I10 Essential (primary) hypertension; Z79.899 Other long term (current) drug therapy; M16.12 Unilateral primary osteoarthritis, left hip; K21.9 Gastro-esophageal reflux disease without esophagitis; Z96.641 Presence of right artificial hip joint; Z87.891 Personal history of nicotine dependence; Z88.0 Allergy status to penicillin; Z88.1 Allergy status to other antibiotic agents; Z79.82 Long term (current) use of aspirin